=== PATIENT | male | born 1950 | race Caucasian/White ===

== ENCOUNTER 2017-10-28 17:46 | Inpatient (IN) | payer MEDICARE, OTHER ==
[2017-10-28] MEDS ORDERED: Levofloxacin 750mg/150mL 750 MG/150 ML BAG IV ONE (17:56)
[2017-10-28] MEDS ORDERED: Acetaminophen 500 MG TAB PO ONE (17:57)
[2017-10-28] MEDS ORDERED: Clindamycin 600mg/50mL 600 MG/50 ML BAG IV ONE (17:57)
[2017-10-28] MEDS ORDERED: Pantoprazole 40 mg EC Tab PO STA (17:59)
[2017-10-28 18:30] LABS: % BASOPHILS 0.6 % (0.0-2.0); % EOSINOPHILS 8.5 % (0.0-5.0); % LYMPHOCYTES 17.9 % (20.0-50.0); % MONOCYTES 11.1 % (2.0-10.0); % NEUTROPHILS 61.9 % (40.0-80.0); EOSINOPHILE ABSOLUTE 0.6 Th/cmm (0.1-0.4); HEMATOCRIT 37.6 % (41.0-60); HEMOGLOBIN 12.8 gm/dL (12-16); LYMPHOCYTE ABSOLUTE 1.3 Th/cmm (1.5-3.0); MEAN CELL VOLUME 90.7 fl (80-99); MEAN CORPUSCULAR HEMOGLOBIN 30.9 pg (27.0-31.0); MEAN CORPUSCULAR HGB CONC 34.1 pg (28.0-36.0); MEAN PLATELET VOLUME 8.1 fl; MONOCYTE ABSOLUTE 0.8 Th/cmm (0.3-1.0); NEUTROPHILE ABSOLUTE 4.3 Th/cmm (1.8-8.0); PLATELET COUNT 113 Th/cmm (150-400); RED BLOOD COUNT 4.14 Mil/cmm (3.80-5.80); RED CELL DISTRIBUTION WIDTH 13.2 % (11.5-20.0)
[2017-10-28 18:34] LABS: ALB/GLOB RATIO 1.4 (1.0-1.8); ALBUMIN 3.8 gm/dL (4.2-5.5); ALKALINE PHOSPHATASE 43 U/L (34-104); BILIRUBIN,TOTAL 0.5 mg/dL (0.3-1.0); BUN - UREA NITROGEN 24 mg/dL (7-25); CALCIUM SERUM 9.2 mg/dL (8.6-10.3); CARBON DIOXIDE 20.4 mEq/L (21.0-31.0); CHLORIDE 98 mEq/L (98-107); CHOLESTEROL 117 mg/dL (<200); CREATININE - SERUM 1.3 mg/dL (0.7-1.3); GFR AFRICAN-AMERICAN > 60.0 ml/min (>90); GFR NON AFRICAN-AMERICAN 58.9 ml/min; GLUCOSE 270 mg/dL (70-105); HDL -HIGH DENSITY LIPOPROTEIN 24 mg/dL (23-92); MAGNESIUM 2.1 mg/dL (1.9-2.7); POTASSIUM SERUM 4.4 mEq/L (3.5-5.1); SGOT 14 U/L (13-39); SGPT/ALT 18 U/L (7-52); SODIUM SERUM 127 mEq/L (136-145); TOTAL PROTEIN,SERUM 6.6 gm/dL (6.0-8.3); TRIGLYCERIDES 374 mg/dL (<150)
[2017-10-28] MEDS ORDERED: Acetaminophen 500 MG TAB ONE (19:32)
[2017-10-28] MEDS ORDERED: Pantoprazole 40 mg EC Tab PO ONE (19:32)
--- NOTE | 2017-10-28 20:43 | ER Physician Documentation ---
DATE OF SERVICE: 10/28/2017 EMERGENCY ROOM EVALUATION AND TREATMENT The patient is a full code. He was sent for psychiatric evaluation plus the patient was found to have a cellulitis in the left lower extremities almost 6 inches x 6 inch area and he was treated 1 week with antibiotic, I do not know which antibiotic was given, but the patient did not improve completely. The patient still has a considerable amount of cellulitis and the patient is sent here for psychiatric evaluation and we discovered that the patient also has evidence of cellulitis. The patient said that he was sent over here because of aggressive behavior, agitation, failure to thrive and he was sent here by [facility] [place]. The patient's medical doctor's name is Dr. Martinez and psychiatrist's name is Dr. Echevarria. The nurse who saw, approved was AUGUSTO Phillip, 10/27/2017, that means yesterday he must be approved to come today to see the patient. The patient was interviewed. The patient does not have any heart problems or any other medical problems. The patient is not . HISTORY OF PRESENT ILLNESS: The patient says that he does not have any problem or he does not want to kill anybody, he does not want himself to be killed. He has some anger in him that could be seen. The patient gave a history that he had a cellulitis in the left lower extremity, which was treated with 1 week of antibiotic and he requested that they can give him one more week of antibiotic, but he was denied and patient was sent over here. PAST MEDICAL HISTORY: History of congestive heart failure, history of atrial fibrillation, diabetes mellitus, hypertension, coronary artery disease, benign prostatic hypertrophy as well psychiatric condition. REVIEW OF SYSTEMS: A 12-point review of systems is essentially positive for cellulitis in the left lower extremity. Mild obesity. He has a history of surgery in the abdomen 23-25 years ago, plus he had some surgery in both eyes, the cataract removal and lens implantation was carried out, that was done more than 25 years ago. He is wearing glasses, mainly to see, otherwise, he is doing fine. PERSONAL HISTORY: Not . He has 3 daughters and one of them was in the army service etc. The patient's nutritional hydration status is essentially normal, alert, oriented x 3. The patient is free of communicable disease. ALLERGIES: None known. PRIMARY DIAGNOSES: The patient has a right lower extremity cellulitis is present. The patient was recently transferred from [place] for right lower extremity redness and swelling, workup for symptoms of cellulitis. Treatment is antibiotic and standing and other treatment. REVIEW OF SYSTEMS: EYES: No history of double vision, blurring, blindness. CENTRAL NERVOUS SYSTEM: Denied any TIAs, stroke, encephalitis, meningitis. No definite Down syndrome is identified. The patient has some psychiatric problem from maybe some psychosis anger problem and he has some complaints again, agitation problem and redness into the left lower extremity with psychiatric problems. The patient denied any myocardial infarction, rheumatic fever, valvular heart disease, pericardial disease, cardiomyopathy. Review of systems reveals that central nervous system, the patient has no TIA, no stroke, no history of any seizure disorder. ENDOCRINE: No history of diabetes mellitus, hypo or hyperthyroidism. Bones and joints, the patient says that he is getting OT, PT therapy. He was able to walk up to 1300 feet, but now because of cellulitis his walking has decreased. The patient has COPD for which he is taking DuoNebs. The patient had enlarged prostate for which he is taking Flomax. The patient has diabetes mellitus, taking 10 mg of glipizide, then he is taking Humalog solution insulin, that is lispro injection according to the scale that is been given plus he takes Lasix, Lipitor, lisinopril, loperamide as well as loratadine 10 mg tablet once a day, Mucinex tablet, nitroglycerin p.r.n. and patient is taking Plavix. I am not sure whether the patient has had any previous stent placement performed in him. The patient had this history of atrial fibrillation. His other past history includes a history of mood disorder due to known problem secondary ICD-10 code schizophrenic disorder, peripheral vascular disease, secondary disorder and obsessive compulsive disorder, schizophrenia, unspecified, heart failure and the patient was sent here for Geropsych. Depending upon his condition, he might need to be sent to the Geropsych admission, he can be given oral antibiotic tablet and other medications as needed can be given. In the meantime, the patient can be given the first dose starting dose with clindamycin and Levaquin has been added that can be started here and then the patient can be sent to the psychiatric evaluation. The patient has COPD and the patient is taking digoxin 125 mcg 1 tablet by mouth for AFib to control the ventricular response of atrial fibrillation, cholecalciferol tablet 2000 units once a day, clonidine tablet 0.1 mg 1 tablet by mouth daily and patient is getting solution Glargine 40 units once a day and the patient is also getting carvedilol 6.25 mg every every 12 hours but they have not given us the ejection fraction of this patient. We do not know if the patient had any myocardial infarction. We have no idea whether the patient's congestive heart failure is secondary to myocardial infarction, whether it is coronary artery disease or whether it is hypertension secondary to hypertensive heart disease, congestive heart failure is present and atrial fibrillation also could be as a result of this problem. HEART ROBLERO: The patient has all this problem that I mentioned earlier. Pulmonary roblero, patient has shortness of breath, PND, orthopnea, dyspnea on exertion. Ambulation is somewhat restricted. The patient takes nitroglycerin on a p.r.n. basis. The patient for the GERD, takes Protonix tablets. The patient has some mild GERD problem. The patient does not have any vomiting, GI problems, rectal bleeding or vomiting blood or any hematemesis or hematochezia. Endocrine roblero, the patient has no thyroid disease. No history of any diabetes mellitus. No history of any Hunters's syndrome. Genitourinary roblero, the patient has enlarged prostate for which he takes Flomax tablet. Denied any retention of urine. Denied any Carr catheter that was inserted in him. But it is very quite likely that because of enlarged prostate he might have had retention of the urine and he might have needed a Carr catheter maybe once or twice, but this needs to be known by the patient's family physician. The patient does not remember much of this history. The patient does take nitroglycerin on a p.r.n. basis 5.4 mg on a p.r.n. basis every 5 minutes x 3 for angina pectoris and Lipitor he takes 10 mg tablet, which is very little, lisinopril 10 mg tablet this is very little he takes once a day, Flomax tablet, he takes 10.4 mg once a day, glipizide 10 mg tablet, he takes once a day. and Humalog insulin solution according to the protocol. Gastrointestinal roblero, no history of any upper GI bleeding, lower GI bleeding. Genitourinary, enlarged prostate, no definite history of any distention of the kidney part or any polycystic kidneys. PHYSICAL EXAMINATION: GENERAL: The patient appears to be awake, alert, oriented, some part of the history is difficult to understand in view of the language barrier. Conjunctivae pink, sclerae white. HEENT: Normal. Jugular venous pressure is normal. The patient has cellulitis in the left lower extremity about 6 inches x 6 inches with redness, erythema and some purulent discharge type thing seen on that area and the area is red, hot, tender, painful. Pulses are not felt in the ankle area. There is edema over both lower extremities. CHEST: Reveals trachea to be central, fairly good air entry in both lungs without any rales, rhonchi, or bronchial wheezing. Neck veins are not distended and there is no gross evidence of any congestive heart failure. Chest has occasional crackles at the bases. ABDOMEN: Soft, obese, otherwise benign and negative. Has a midline surgical scar, deformed surgical scar, looks like a 2 or 3 different kinds of abdominal surgeries that were done on him and the scar is deformed suggesting multiple scarring and surgery has been done and according to him, the patient had anal bleeding, rectal bleeding and a part of the intestine was cut and removed and two suture has been placed and patient had a colostomy bag at that time. CVA, no tenderness, no guarding, no rigidity. HEART: PMI is not seen or felt. Heart sounds appeared to be looking tachycardic. EKG has been ordered and we will see what is the rate, if the rate is faster? When I first felt him the rate appeared to be close to 120-130. The patient will be connected to the monitor and will keep it so that we can watch him whether he goes in and out of atrial fibrillation and if it does that he might need some anticoagulant therapy, Plavix was given to the patient. I do not know whether it was as a result insertion of a stent in the coronary artery or whether it is because of coronary artery disease or whether the patient is allergic or sensitive to aspirin given her history of GI bleeding that is why instead of aspirin, Plavix has been given. All these are possibilities in this patient well known to the doctor. A 12-point review of systems has been found to be negative and benign and as I mentioned holds true. CLINICAL IMPRESSION: The patient has a psychiatric problem, schizophrenia, anger problem and patient has agitation problems. The patient was told to come here at 9:15 in the morning and the patient was brought here a little later on around in the day, around 4:00 and he was upset because of that. OTHER DIAGNOSES: Includes patient has left lower extremity cellulitis, but here they sent it as a right lower extremity cellulitis, but it is left lower extremity cellulitis. Other diagnoses that are written over there in their hospital and sent over here includes: 1. Congestive heart failure. 2. Atrial fibrillation. 3. Diabetes mellitus. 4. Hypertensive heart disease. 5. Coronary artery disease. 6. Diabetes. 7. Benign prostatic hypertrophy. 8. Psychiatric problem. 9. The patient has multiple surgeries in the abdomen. Rectal bleeding requiring surgery, part of the intestine was cut and thrown apart and then reanastomosed and patient had a colostomy and finally got improved. He had three surgeries of this nature, exact nature not known. Other surgeries include that the patient had an eye surgery with both eyes, corneal removal and lens implantation was done and he is wearing glasses to read. 10. The patient has cellulitis in the left lower extremity and the left lower extremity cellulitis, the patient has it and IV has been given and the patient would need a p.o. antibiotic down the line depending upon the patient's family doctor that is going to take care of the patient. If the patient in atrial fibrillation, then the patient would need continuation of the digoxin and patient has been getting Coreg, so I think they might continue Coreg, but I would like also Lopressor to be given, it depends upon the doctor's preference. 11. Mild obesity. 12. Three surgeries in the belly done. 13. All other diagnoses that I mentioned earlier holds true including schizophrenia, heart failure, atrial fibrillation, CAD, peripheral vascular disease, mild obesity, etc. Thank you again. All the labs, EKG, chest x-ray has been ordered and once we get some lab workup, we will decide what further to be done. We will discuss with the patient's primary MD and whether the patient should be sent to the psychiatric floor. I believe the patient could be sent on oral antibiotics and one antibiotic we will start and giving antibiotic IV here and then oral antibiotic down there in a Psychiatric Department. JOB# [id number]
[2017-10-28 23:17] VITALS: BP 00/00
[2017-10-28] MEDS ORDERED: Albuterol/Ipratropium Neb 3 ML AERS HHN PRN (23:29)
[2017-10-28] MEDS ORDERED: Guaifenesin DM 10 ML UDC PO PRN (23:29)
[2017-10-28] MEDS ORDERED: DULAGLUTIDE 0.75 MG SC SCH (23:30)
[2017-10-29] MEDS: Insulin Detemir 100 units/mL 10mL Vial SUBQ SCH ×2 (00:42→21:36)
--- NOTE | 2017-10-29 04:25 | ER Physician Documentation ---
DATE OF SERVICE: 10/28/2017 FINAL REPORT The patient is on the bed #4. The patient was sent here for psychiatric admission. The patient was seen and evaluated. The patient's first part was dictated. Now, we got the lab results showing white count to be 7000, hemoglobin 12.8, hematocrit 37.6, platelet count of 113,000, neutrophils 61.9, lymphocytes 17.9. Electrolytes showed sodium 127, potassium 4.4, chloride 98, CO2 20.4, BUN 24, creatinine is 1.3 and glucose is 270. The patient is a diabetic patient on insulin. Calcium 9.2, magnesium 2.1 and bilirubin 0.5. AST, ALT all essentially within normal limits. Triglycerides are high at 374. The patient may need a Tricor to be taken as an indoor patient. Cholesterol is 117, LDL is 50, HDL is 24. FINAL DIAGNOSES: I have already mentioned saying that the patient has cellulitis in the left lower extremity. The patient has congestive heart failure, coronary artery disease, chronic obstructive pulmonary disease, hypertension, diabetes mellitus, cataract surgery in both eyes with lens implantation, obesity and psychiatric problem. ASSESSMENT: The patient's physician will be called, Internal Medicine physician will be called and he will decide whether the patient to be admitted under the medical floor for a few days and then go to psych or whether the patient can go to Psych and take oral antibiotic in Psych. One can always take oral antibiotic in Psych and take psych medications also without any problems, so both ways one can do, so it all depends upon what the primary MD of this patient decides. Will ask the nurse to call, I will speak to the doctor and then will decide what further to be done. JOB# [id number]
[2017-10-29] MEDS: INSULIN ASPART SLIDING SCALE 100 UNITS/ML UNIT SUBQ SCH ×4 (06:43→21:34)
[2017-10-29] MEDS: Pantoprazole 40 mg EC Tab PO SCH (08:45)
--- NOTE | 2017-10-29 09:04 | Diagnostic Imaging Report ---
CHEST X-RAY: AP view INDICATION: Pneumonia COMPARISON: None FINDINGS: There is evidence of prior median sternotomy. Increased interstitial lung markings are noted with no focal consolidation or effusions. Mild cardiomegaly is noted. Degenerative changes of the spine are noted. IMPRESSION: Increased interstitial lung markings likely due to chronic changes. No focal consolidation identified. Mild cardiomegaly. Evidence of prior median sternotomy.
--- NOTE | 2017-10-29 10:41 | History and Physical ---
History of Present Illness - HPI Chief Complaint: Increased in agitation HPI: Patient was send to ER for evaluation on increased in agitation. During eval was found that patient has cellulites in left lower leg. 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[employer] INSTRUCTOR: Report: Dementia GI: Report: No Pertinent Hx Psych: Report: Psychosis, Schizophrenia Musculoskeletal: Report: No Pertinent Hx Rheumatologic: Report: No pertinent Hx Infectious Disease: Report: Other (Cellulites of left leg) Renal/: Report: No Pertinent Hx Endocrine: Report: Diabetes Dermatology: Report: Cellulitis - Past Surgical History Past Surgical History: No pertinent Hx Family Medical History - Family Member Mother History Unknown: Yes Ethnicity: Unknown Living Status: Unknown Social History Smoke: No Alcohol: None Drugs: None Lives: Care Home Domestic Violence: Negative - Medications Home Medications: Home Medication Medication Instructions Recorded Type Acetaminophen [Tylenol] 650 mg PO Q6HR PRN 10/28/17 History Albuterol/Ipratropium Neb [Duoneb 3 ml HHN Q6HR PRN 10/28/17 History Neb] Atorvastatin Calcium [Lipitor] 10 mg PO HS 10/28/17 History Carvedilol [Coreg] 6.25 mg PO Q12H 10/28/17 History Cholecalciferol (Vit D3) [Vitamin 2,000 iu PO DAILY 10/28/17 History D3] Clonidine HCl [Catapres] 0.1 mg PO Q6H PRN 10/28/17 History Clopidogrel [Plavix] 75 mg PO DAILY 10/28/17 History Dextromethorphan HBr [Daytime 5 mg PO Q6H PRN 10/28/17 History Cough] Digoxin [Lanoxin] 0.125 mg PO DAILY 10/28/[address] [Depakote DR] 500 mg PO BID 10/28/17 History Dulaglutide [Trulicity] 0.75 mg SC QWEEK 0730 10/28/17 History Furosemide [Lasix] 40 mg PO DAILY 10/28/17 History Glipizide [Glipizide ER] 10 mg PO BID 10/28/17 History Insulin Glargine, Recombinan 40 units SUBQ HS 10/28/17 History [Lantus] Insulin Lispro [Humalog] 0 unit SQ ACHS 10/28/17 History Lisinopril [Zestril] 10 mg PO DAILY 10/28/17 History Loperamide [Imodium] 2 mg PO Q4H PRN 10/28/17 History Montelukast Sodium 10 mg PO DAILY 10/28/17 History Nitroglycerin [Nitrostat] 0.4 mg SL Q5MIN PRN 10/28/17 History Pantoprazole [Protonix] 40 mg PO DAILY 10/28/17 History Silver Sulfadiazine 1% Cream [Ssd] 1 appl TP BID 10/28/17 History Spironolactone [Aldactone] 25 mg PO DAILY 10/28/17 History Tamsulosin [Flomax] 0.4 mg PO DAILY 10/28/17 History guaiFENesin [Mucinex] 600 mg PO Q12HR 10/28/17 History - Allergies Allergies/Adverse Reactions: Allergies Allergy/AdvReac Type Severity Reaction Status Date / Time No Known Allergies Allergy Verified 10/28/17 17:48 Review of Systems - Review of Systems Constitutional: Report: No Significant Eyes: Report: No Significant ENT: Report: No Significant Respiratory: Report: No Significant Cardiovascular: Report: No Significant Gastrointestinal: Report: No Significant Genitourinary: Report: No Significant Musculoskeletal: Report: Foot Pain Skin: Report: Other (Cellulites) Neurological: Report: Weakness Physical Exam - Physical Exam HEENT: Report: Ears Nose Throat within normal limits Neck: Report: Within normal limits Cardiovascular Systems: Report: Regular, Rate and Rhythm Respiratory: Report: Breath Sounds are within normal limits Abdomen: Report: Non-tender to palpation Back: Report: Inspection of back is within normal limits. Extremities: Report: Other (Left lower leg is red with edema below knee 2+) Skin: Report: Other (Rednes of left lower leg) Neuro/Psych: Report: Disoriented to name time or place - Assessment Assessment: Current Active Problems Problem Status Onset AGITATION WITH RIGHT LOWER EXTREMITY RED Acute Patient is awake, alert, confused, calm, not oriented. Dx: cellulites left leg, Increased in agitation, CHF, CAD, HTN, DM, COPD, Psychosis - Plan Plan: Patient is follow by Psychiatry, continue with SNF meds, AB po. Leg US requested. Will continue to monitor
--- NOTE | 2017-10-29 18:20 | Psychosocial Evaluation ---
DATE OF SERVICE: 10/29/2017 IDENTIFYING DATA: The patient is a 67-year-old male admitted from [facility]. Information obtained by directly interviewing the patient as well as reviewing the admission papers. JUSTIFICATION FOR HOSPITALIZATION: The patient is admitted here on a voluntary basis in view of his acute agitation. CHIEF COMPLAINT: "I shouldn't be in here, call the hospital to get me out of here." HISTORY OF PRESENT ILLNESS: This is the first psychiatric hospitalization for this patient, who is reported to have been out of control, screaming and yelling. The patient could not be contained at a lower level of care and hence has been transferred over here for stabilization. During the evaluation, the patient has been getting easily irritable, screaming and yelling and stating that the staff last night were not let him go to the toilet and he has to shit in his diaper and patient has been getting easily upset. The patient is demanding that I should contact his daughter and to get him out of here. PAST PSYCHIATRIC HISTORY: Details are not known. MEDICAL HISTORY: Requested to be done by Dr. Martinez. PHYSICAL EXAMINATION: Requested to be done by Dr. Martinez. SUBSTANCE ABUSE HISTORY: None. PHYSICAL OR SEXUAL ABUSE HISTORY: None. LEGAL PROBLEMS: None at this time. STRENGTH AND ASSETS: The patient is motivated. MENTAL STATUS EXAMINATION: The patient is a 67-year-old, looking his stated age, superficially cooperative. Eye contact is poor. Mood is noted to be irritable. Affect is constricted. Coping skills at this time are noted to be poor. Insight and judgment are also noted to be very poor. The patient has been having difficult time to cope with the stress. The patient has been screaming and yelling at this time. The patient appears to be paranoid, but denies any command hallucinations. The patient is alert and awake and he knows that he is in the hospital. DIAGNOSTIC IMPRESSION: 1. Bipolar disorder, mixed with psychotic symptoms. PLAN: To continue the patient with the supportive therapy, encouraged the patient to verbalize the concerns rather than to act out. The patient is currently on the valproic acid 500 mg twice a day and also getting the quetiapine 25 mg. We have given a dose to contain his agitation. The patient is going to be closely monitored with this and followed up. JOB# [id number]
[2017-10-29 19:11] LABS: A1C % 10.7 % (4.0-6.0)
[2017-10-29] MEDS ORDERED: Atorvastatin Calcium 10 MG TAB PO SCH (21:00)
[2017-10-29] MEDS: Atorvastatin Calcium 10 MG TAB PO SCH (21:33)
[2017-10-30] MEDS: INSULIN ASPART SLIDING SCALE 100 UNITS/ML UNIT SUBQ SCH ×4 (06:35→20:59)
[2017-10-30] MEDS: Pantoprazole 40 mg EC Tab PO SCH (08:53)
--- NOTE | 2017-10-30 09:09 | Diagnostic Imaging Report ---
Left lower extremity DVT study HISTORY: Pain, swelling, redness rule out DVT COMPARISON: None Technique: Longitudinal and transverse sonographic images of the left lower extremity veins were obtained with doppler analysis. FINDINGS: There is normal compressibility, augmentation and phasicity of the left common femoral, superficial femoral, popliteal, and posterior tibial veins. No thrombus is visualized. IMPRESSION: No evidence of thrombus within the left lower extremity veins.
[2017-10-30] MEDS: Atorvastatin Calcium 10 MG TAB PO SCH (20:52)
[2017-10-30] MEDS: Insulin Detemir 100 units/mL 10mL Vial SUBQ SCH (21:00)
--- NOTE | 2017-10-31 01:08 | Progress Notes ---
DATE: 10/30/2017 PSYCHIATRIC PROGRESS NOTE SUBJECTIVE: Staff was spoken to. The patient is interviewed. Mood is noted to be depressed. Affect is constricted. The patient's insight and judgment at this time are noted to be still impaired. Impulse control seems to be limited. The patient has been screaming and yelling and demanding that he should not be in here, he should be back at [facility]. The patient has no insight into his illness. ASSESSMENT: The patient is still impulsive and having mood swings. PLAN: To continue this patient with the current medications and followup. JOB# [id number]
[2017-10-31] MEDS: INSULIN ASPART SLIDING SCALE 100 UNITS/ML UNIT SUBQ SCH ×4 (06:40→21:14)
--- NOTE | 2017-10-31 08:47 | General Progress Note ---
Subjective - Review of Systems Service Date: 10/31/17 Subjective: I am fine Objective - Results Result Diagrams: 10/28/17 18:08 10/28/17 18:08 Recent Labs: Laboratory Last Values WBC 7.0 Th/cmm (4.8-10.8) 10/28/17 18:08 RBC 4.14 Mil/cmm (3.80-5.80) 10/28/17 18:08 Hgb 12.8 gm/dL (12-16) 10/28/17 18:08 Hct 37.6 % (41.0-60) L 10/28/17 18:08 MCV 90.7 fl (80-99) 10/28/17 18:08 MCH 30.9 pg (27.0-31.0) 10/28/17 18:08 MCHC Differential 34.1 pg (28.0-36.0) 10/28/17 18:08 RDW 13.2 % (11.5-20.0) 10/28/17 18:08 Plt Count 113 Th/cmm (150-400) L 10/28/17 18:08 MPV 8.1 fl 10/28/17 18:08 Neutrophils % 61.9 % (40.0-80.0) 10/28/17 18:08 Lymphocytes % 17.9 % (20.0-50.0) L 10/28/17 18:08 Monocytes % 11.1 % (2.0-10.0) H 10/28/17 18:08 Eosinophils % 8.5 % (0.0-5.0) H 10/28/17 18:08 Basophils % 0.6 % (0.0-2.0) 10/28/17 18:08 Sodium 127 mEq/L (136-145) L 10/28/17 18:08 Potassium 4.4 mEq/L (3.5-5.1) 10/28/17 18:08 Chloride 98 mEq/L (98-107) 10/28/17 18:08 Carbon Dioxide 20.4 mEq/L (21.0-31.0) L 10/28/17 18:08 Anion Gap 13.0 (7.0-16.0) 10/28/17 18:08 BUN 24 mg/dL (7-25) 10/28/17 18:08 Creatinine 1.3 mg/dL (0.7-1.3) 10/28/17 18:08 Est GFR ( Amer) > 60.0 ml/min (>90) 10/28/17 18:08 Est GFR (Non-Af Amer) 58.9 ml/min 10/28/17 18:08 BUN/Creatinine Ratio 18.5 10/28/17 18:08 Glucose 270 mg/dL (70-105) H 10/28/17 18:08 POC Glucose 215 MG/DL (70 - 105) H 10/31/17 06:25 Hemoglobin A1c % 10.7 % (4.0-6.0) H 10/28/17 18:08 Calcium 9.2 mg/dL (8.6-10.3) 10/28/17 18:08 Magnesium 2.1 mg/dL (1.9-2.7) 10/28/17 18:08 Total Bilirubin 0.5 mg/dL (0.3-1.0) 10/28/17 18:08 AST 14 U/L (13-39) 10/28/17 18:08 ALT 18 U/L (7-52) 10/28/17 18:08 Alkaline Phosphatase 43 U/L (34-104) 10/28/17 18:08 Total Protein 6.6 gm/dL (6.0-8.3) 10/28/17 18:08 Albumin 3.8 gm/dL (4.2-5.5) L 10/28/17 18:08 Globulin 2.8 gm/dL 10/28/17 18:08 Albumin/Globulin Ratio 1.4 (1.0-1.8) 10/28/17 18:08 Triglycerides 374 mg/dL (<150) H 10/28/17 18:08 Cholesterol 117 mg/dL (<200) 10/28/17 18:08 LDL Cholesterol Direct 50 mg/dL (75-193) L 10/28/17 18:08 HDL Cholesterol 24 mg/dL (23-92) 10/28/17 18:08 - Physical Exam Vitals and I&O: Vital Signs Temp 97.3 F 10/31/17 06:43 Pulse 68 10/31/17 07:28 Resp 20 10/31/17 07:28 BP 158/85 10/31/17 06:43 Pulse Ox 97 10/31/17 07:28 Intake & Output 10/30/17 10/31/17 10/31/17 18:59 06:59 18:59 Other: Stool Characteristics Soft Active Medications: Current Medications Acetaminophen (Tylenol) 650 mg PO Q6HR PRN PRN Reason: PAIN Stop: 12/27/17 23:28 Last Admin: 10/29/17 17:10 Dose: 650 mg Albuterol/Ipratropium (Duoneb Neb) 3 ml HHN Q6HRT PRN PRN Reason: SOB/WHEEZING Stop: 12/27/17 23:28 Atorvastatin Calcium (Lipitor) 20 mg PO HS [facility] PRN Reason: Protocol Stop: 12/28/17 20:59 Last Admin: 10/30/17 20:52 Dose: 20 mg Carvedilol (Coreg) 6.25 mg PO Q12H [facility] Stop: 12/27/17 23:29 Last Admin: 10/30/17 23:45 Dose: 6.25 mg Cholecalciferol (Vitamin D3) 2,000 iu PO DAILY [facility] Stop: 12/28/17 08:59 Last Admin: 10/30/17 08:54 Dose: 2,000 iu Clindamycin HCl (Cleocin Hcl) 300 mg PO Q8HR [facility] Stop: 12/28/17 12:59 Last Admin: 10/31/17 05:25 Dose: 300 mg Clopidogrel Bisulfate (Plavix) 75 mg PO DAILY [facility] Stop: 12/28/17 08:59 Last Admin: 10/30/17 08:53 Dose: 75 mg Digoxin (Lanoxin) 0.125 mg PO DAILY [facility] Stop: 12/28/17 08:59 Last Admin: 10/30/17 08:54 Dose: 0.125 mg Divalproex Sodium (Depakote Dr) 500 mg PO BID [facility] PRN Reason: Protocol Stop: 12/28/17 08:59 Last Admin: 10/30/17 16:35 Dose: 500 mg Furosemide (Lasix) 40 mg PO DAILY [facility] Stop: 12/28/17 08:59 Last Admin: 10/30/17 08:53 Dose: 40 mg Glipizide (Glucotrol) 10 mg PO BID [facility] Stop: 12/30/17 08:59 Guaifenesin (Mucinex) 600 mg PO Q12HR [facility] Stop: 12/28/17 08:59 Last Admin: 10/30/17 20:52 Dose: 600 mg Guaifenesin/Dextromethorphan (Robitussin Dm) 10 ml PO Q6H PRN PRN Reason: Cough Insulin Aspart (Novolog Insulin Sliding Scale) 0 units SUBQ ACHS [facility] PRN Reason: Protocol Stop: 12/28/17 07:29 Last Admin: 10/31/17 06:40 Dose: 4 units Insulin Detemir (Levemir Insulin) 40 units SUBQ HS [facility] Stop: 12/27/17 23:44 Last Admin: 10/30/17 21:00 Dose: 40 units Lisinopril (Zestril) 10 mg PO DAILY [facility] Stop: 12/28/17 08:59 Last Admin: 10/30/17 08:53 Dose: 10 mg Loperamide HCl (Imodium) 2 mg PO Q4H PRN PRN Reason: Loose Stools Stop: 12/27/17 23:28 Lorazepam (Ativan) 0.5 mg PO Q4HR PRN; Protocol PRN Reason: Agitation Stop: 11/28/17 00:42 Last Admin: 10/29/17 17:10 Dose: 0.5 mg Miscellaneous (Dulaglutide [Trulicity]) 0.75 mg SC QWEEK 0730 [facility] Stop: 12/27/17 23:29 Montelukast Sodium (Singulair) 10 mg PO DAILY [facility] Stop: 12/28/17 08:59 Last Admin: 10/30/17 08:53 Dose: 10 mg Nitroglycerin (Nitrostat) 0.4 mg SL Q5MIN PRN PRN Reason: Chest Pain Stop: 12/27/17 23:28 Pantoprazole Sodium (Protonix) 40 mg PO DAILY [facility] Stop: 12/28/17 08:59 Last Admin: 10/30/17 08:53 Dose: 40 mg Sodium Chloride (Nacl Tab) 1 gm PO BID [facility] Stop: 12/28/17 10:29 Last Admin: 10/30/17 16:35 Dose: 1 gm Spironolactone (Aldactone) 25 mg PO DAILY [facility] Stop: 12/28/17 08:59 Last Admin: 10/30/17 08:53 Dose: 25 mg Tamsulosin HCl (Flomax) 0.4 mg PO DAILY [facility] Stop: 12/28/17 08:59 Last Admin: 10/30/17 09:59 Dose: 0.4 mg Zolpidem Tartrate (Ambien) 5 mg PO HS PRN PRN Reason: Insomnia Stop: 12/28/17 00:46 General: Alert, No acute distress HEENT: Atraumatic Neck: Supple Cardiovascular: Regular rate Lungs: Clear to auscultation Abdomen: Bowel sounds, Soft Extremities: Other (No edema) Neurological: Other (Unstable gait) Skin: Other (Warm and dry) Psych/Mental Status: Other (Confused, not oriented) Assessment/Plan - Problem List Patient Problems: All Active Problems AGITATION WITH RIGHT LOWER EXTREMITY RED (Acute) - Assessment Assessment: Current Active Problems Problem Status Onset AGITATION WITH RIGHT LOWER EXTREMITY RED Acute Patient is awake, alert, confused, calm, not oriented. Dx: cellulites left leg, Increased in agitation, CHF, CAD, HTN, DM, COPD, Psychosis - Plan Plan: Patient is follow by Psychiatry, continue with SNF meds, AB po. Leg US requested. Will continue to monitor Nutritional Asmnt/Malnutr-PDOC - Dietary Evaluation Malnutrition Findings (Please click <Entered> for more info): Nutritional Asmnt/Malnutrition Start: 10/29/17 11: 50 Text: Status: Complete Freq: Document 10/29/17 11:50 ZEINA (Rec: 10/29/17 12:11 MMULTATIANNA MURRIETA- [email or web address]) Nutritional Asmnt/Malnutrition Patient General Information Nutritional Screening High Risk Diagnosis Psychosis NOS (reason for visit) Pertinent Medical Hx/Surgical Hx CAD, CHF, HTN, hyperlipidemia, COPD, dementia, psychosis, schizophrenia, diabetes, cellulitis Subjective Information patient in bed at time of visit. Tolerating current diet order without difficulty. Current Diet Order/ Nutrition Support Cardiac, 2gm sodium Pertinent Medications lipitor, vitamin D3, lasix, novolog, levemir, imodium, protonix Pertinent Labs (10/28) Na 127, glucose 270, albumin 3.8, TAG 374 Nutritional Hx/Data Height 1.83 m Height (Calculated Centimeters) 182.9 Current Weight (lbs) 104.326 kg Weight (Calculated Kilograms) 104.3 Weight (Calculated Grams) 884375.2 [place] Body Weight 178 % [place] Body Weight 129 Body Mass Index (BMI) 31.1 Recent Weight Change No Weight Status Obese GI Symptoms GI Symptoms None Last BM 10/29 x 1 Difficult in: None Food Allergies No Cultural/Ethnic/Evangelical Belief None indciated Skin Integrity/Comment: Per nursing notes, left lower leg with swelilng Estimated Nutritional Goals BEE in Kcals: Adj wt of IBW Calories/Kcals/Kg 86.8kg Adj wt (25-30 kcal/kg) Kcals Calculated 4315-3533 kcal/day Protein: Adj wt of IBW Protein g/k-1.2 gm/kg Protein Calculated 85-105 gm/day Fluid: ml 2622-3563 ml/day (1 ml/kcal) Nutritional Problem 1. Problem Problem Altered nutrition related lab values related to Etiology electrolyte imbalance and hyperglycemia aeb Signs/Symptoms: Na 127, glucose 270 Intervention/Recommendation Comments 1. Continue cardiac diet as tolerated by patient. 2. Consider adding 75gm CCHO diet restrictio to diet order; MD to also adjust insulin regimen for optimal glycemic control. 3. MD to consider fluid restriction due to hyponatremia. Expected Outcomes/Goals Expected Outcomes/Goals oral intake to meet <75% of nutrient needs, weight stable or trend toward ideal body weight, nutrition related labs normalize F/U in 3-5 days as MR 11/01-
[2017-10-31] MEDS: Pantoprazole 40 mg EC Tab PO SCH (09:12)
[2017-10-31] MEDS: Atorvastatin Calcium 10 MG TAB PO SCH (21:11)
[2017-10-31] MEDS: Insulin Detemir 100 units/mL 10mL Vial SUBQ SCH (21:14)
[2017-11-01] MEDS: INSULIN ASPART SLIDING SCALE 100 UNITS/ML UNIT SUBQ SCH ×4 (06:37→21:00)
[2017-11-01] MEDS: Pantoprazole 40 mg EC Tab PO SCH (09:01)
--- NOTE | 2017-11-01 09:16 | General Progress Note ---
Subjective - Review of Systems Service Date: 11/01/17 Subjective: I am fine Objective - Results Result Diagrams: 10/28/17 18:08 10/28/17 18:08 Recent Labs: Laboratory Last Values WBC 7.0 Th/cmm (4.8-10.8) 10/28/17 18:08 RBC 4.14 Mil/cmm (3.80-5.80) 10/28/17 18:08 Hgb 12.8 gm/dL (12-16) 10/28/17 18:08 Hct 37.6 % (41.0-60) L 10/28/17 18:08 MCV 90.7 fl (80-99) 10/28/17 18:08 MCH 30.9 pg (27.0-31.0) 10/28/17 18:08 MCHC Differential 34.1 pg (28.0-36.0) 10/28/17 18:08 RDW 13.2 % (11.5-20.0) 10/28/17 18:08 Plt Count 113 Th/cmm (150-400) L 10/28/17 18:08 MPV 8.1 fl 10/28/17 18:08 Neutrophils % 61.9 % (40.0-80.0) 10/28/17 18:08 Lymphocytes % 17.9 % (20.0-50.0) L 10/28/17 18:08 Monocytes % 11.1 % (2.0-10.0) H 10/28/17 18:08 Eosinophils % 8.5 % (0.0-5.0) H 10/28/17 18:08 Basophils % 0.6 % (0.0-2.0) 10/28/17 18:08 Sodium 127 mEq/L (136-145) L 10/28/17 18:08 Potassium 4.4 mEq/L (3.5-5.1) 10/28/17 18:08 Chloride 98 mEq/L (98-107) 10/28/17 18:08 Carbon Dioxide 20.4 mEq/L (21.0-31.0) L 10/28/17 18:08 Anion Gap 13.0 (7.0-16.0) 10/28/17 18:08 BUN 24 mg/dL (7-25) 10/28/17 18:08 Creatinine 1.3 mg/dL (0.7-1.3) 10/28/17 18:08 Est GFR ( Amer) > 60.0 ml/min (>90) 10/28/17 18:08 Est GFR (Non-Af Amer) 58.9 ml/min 10/28/17 18:08 BUN/Creatinine Ratio 18.5 10/28/17 18:08 Glucose 270 mg/dL (70-105) H 10/28/17 18:08 POC Glucose 215 MG/DL (70 - 105) H 10/31/17 06:25 Hemoglobin A1c % 10.7 % (4.0-6.0) H 10/28/17 18:08 Calcium 9.2 mg/dL (8.6-10.3) 10/28/17 18:08 Magnesium 2.1 mg/dL (1.9-2.7) 10/28/17 18:08 Total Bilirubin 0.5 mg/dL (0.3-1.0) 10/28/17 18:08 AST 14 U/L (13-39) 10/28/17 18:08 ALT 18 U/L (7-52) 10/28/17 18:08 Alkaline Phosphatase 43 U/L (34-104) 10/28/17 18:08 Total Protein 6.6 gm/dL (6.0-8.3) 10/28/17 18:08 Albumin 3.8 gm/dL (4.2-5.5) L 10/28/17 18:08 Globulin 2.8 gm/dL 10/28/17 18:08 Albumin/Globulin Ratio 1.4 (1.0-1.8) 10/28/17 18:08 Triglycerides 374 mg/dL (<150) H 10/28/17 18:08 Cholesterol 117 mg/dL (<200) 10/28/17 18:08 LDL Cholesterol Direct 50 mg/dL (75-193) L 10/28/17 18:08 HDL Cholesterol 24 mg/dL (23-92) 10/28/17 18:08 - Physical Exam Vitals and I&O: Vital Signs Temp 96.7 F 11/01/17 05:29 Pulse 62 11/01/17 09:01 Resp 20 11/01/17 06:52 BP 157/77 11/01/17 09:01 Pulse Ox 98 11/01/17 06:52 Intake & Output 10/31/17 11/01/17 11/01/17 18:59 06:59 18:59 Intake Total 240 Output Total 600 Balance -360 Intake: Oral 240 Output: Urine 600 Stool 0 Other: Stool Characteristics Soft Active Medications: Current Medications Acetaminophen (Tylenol) 650 mg PO Q6HR PRN PRN Reason: PAIN Stop: 12/27/17 23:28 Last Admin: 11/01/17 09:00 Dose: 650 mg Albuterol/Ipratropium (Duoneb Neb) 3 ml HHN Q6HRT PRN PRN Reason: SOB/WHEEZING Stop: 12/27/17 23:28 Atorvastatin Calcium (Lipitor) 20 mg PO HS [facility] PRN Reason: Protocol Stop: 12/28/17 20:59 Last Admin: 10/31/17 21:11 Dose: 20 mg Carvedilol (Coreg) 6.25 mg PO Q12H [facility] Stop: 12/27/17 23:29 Last Admin: 10/31/17 23:50 Dose: Not Given Cholecalciferol (Vitamin D3) 2,000 iu PO DAILY [facility] Stop: 12/28/17 08:59 Last Admin: 11/01/17 09:02 Dose: 2,000 iu Clindamycin HCl (Cleocin Hcl) 300 mg PO Q8HR [facility] Stop: 12/28/17 12:59 Last Admin: 11/01/17 05:07 Dose: 300 mg Clopidogrel Bisulfate (Plavix) 75 mg PO DAILY [facility] Stop: 12/28/17 08:59 Last Admin: 11/01/17 09:00 Dose: 75 mg Digoxin (Lanoxin) 0.125 mg PO DAILY [facility] Stop: 12/28/17 08:59 Last Admin: 11/01/17 09:01 Dose: 0.125 mg Divalproex Sodium (Depakote Dr) 500 mg PO BID [facility] PRN Reason: Protocol Stop: 12/28/17 08:59 Last Admin: 11/01/17 09:00 Dose: 500 mg Furosemide (Lasix) 40 mg PO DAILY [facility] Stop: 12/28/17 08:59 Last Admin: 11/01/17 09:01 Dose: 40 mg Glipizide (Glucotrol) 10 mg PO BID [facility] Stop: 06/22/18 08:59 Last Admin: 11/01/17 09:00 Dose: 10 mg Guaifenesin (Mucinex) 600 mg PO Q12HR [facility] Stop: 12/28/17 08:59 Last Admin: 11/01/17 09:02 Dose: 600 mg Guaifenesin/Dextromethorphan (Robitussin Dm) 10 ml PO Q6H PRN PRN Reason: Cough Insulin Aspart (Novolog Insulin Sliding Scale) 0 units SUBQ ACHS [facility] PRN Reason: Protocol Stop: 12/28/17 07:29 Last Admin: 11/01/17 06:37 Dose: 4 units Insulin Detemir (Levemir Insulin) 40 units SUBQ HS [facility] Stop: 12/27/17 23:44 Last Admin: 10/31/17 21:14 Dose: 40 units Lisinopril (Zestril) 10 mg PO DAILY [facility] Stop: 12/28/17 08:59 Last Admin: 11/01/17 09:01 Dose: 10 mg Loperamide HCl (Imodium) 2 mg PO Q4H PRN PRN Reason: Loose Stools Stop: 12/27/17 23:28 Lorazepam (Ativan) 0.5 mg PO Q4HR PRN; Protocol PRN Reason: Agitation Stop: 11/28/17 00:42 Last Admin: 10/29/17 17:10 Dose: 0.5 mg Miscellaneous (Dulaglutide [Trulicity]) 0.75 mg SC QWEEK 0730 [facility] Stop: 12/27/17 23:29 Montelukast Sodium (Singulair) 10 mg PO DAILY [facility] Stop: 12/28/17 08:59 Last Admin: 11/01/17 09:02 Dose: 10 mg Nitroglycerin (Nitrostat) 0.4 mg SL Q5MIN PRN PRN Reason: Chest Pain Stop: 12/27/17 23:28 Pantoprazole Sodium (Protonix) 40 mg PO DAILY [facility] Stop: 12/28/17 08:59 Last Admin: 11/01/17 09:01 Dose: 40 mg Quetiapine Fumarate (Seroquel) 12.5 mg PO HS [facility] PRN Reason: Protocol Stop: 12/30/17 20:59 Last Admin: 10/31/17 21:11 Dose: 12.5 mg Sodium Chloride (Nacl Tab) 1 gm PO BID [facility] Stop: 12/28/17 10:29 Last Admin: 11/01/17 09:01 Dose: 1 gm Spironolactone (Aldactone) 25 mg PO DAILY [facility] Stop: 12/28/17 08:59 Last Admin: 11/01/17 09:00 Dose: 25 mg Tamsulosin HCl (Flomax) 0.4 mg PO DAILY [facility] Stop: 12/28/17 08:59 Last Admin: 11/01/17 09:02 Dose: 0.4 mg Zolpidem Tartrate (Ambien) 5 mg PO HS PRN PRN Reason: Insomnia Stop: 12/28/17 00:46 General: Alert, No acute distress HEENT: Atraumatic Neck: Supple Cardiovascular: Regular rate Lungs: Clear to auscultation Abdomen: Bowel sounds, Soft Extremities: Other (No edema) Neurological: Other (Unstable gait) Skin: Other (Warm and dry) Psych/Mental Status: Other (Confused, not oriented) Assessment/Plan - Problem List Patient Problems: All Active Problems AGITATION WITH RIGHT LOWER EXTREMITY RED (Acute) - Assessment Assessment: Current Active Problems Problem Status Onset AGITATION WITH RIGHT LOWER EXTREMITY RED Acute Patient is awake, alert, confused, calm, not oriented. Dx: cellulites left leg, Increased in agitation, CHF, CAD, HTN, DM, COPD, Psychosis - Plan Plan: Patient is follow by Psychiatry, continue with SNF meds, AB po. Leg US requested. Will continue to monitor Nutritional Asmnt/Malnutr-PDOC - Dietary Evaluation Malnutrition Findings (Please click <Entered> for more info): Nutritional Asmnt/Malnutrition Start: 10/29/17 11: 50 Text: Status: Complete Freq: Document 10/29/17 11:50 MMULTATIANNA (Rec: 10/29/17 12:11 [facility] Nutritional Asmnt/Malnutrition Patient General Information Nutritional Screening High Risk Diagnosis Psychosis NOS (reason for visit) Pertinent Medical Hx/Surgical Hx CAD, CHF, HTN, hyperlipidemia, COPD, dementia, psychosis, schizophrenia, diabetes, cellulitis Subjective Information patient in bed at time of visit. Tolerating current diet order without difficulty. Current Diet Order/ Nutrition Support Cardiac, 2gm sodium Pertinent Medications lipitor, vitamin D3, lasix, novolog, levemir, imodium, protonix Pertinent Labs (10/28) Na 127, glucose 270, albumin 3.8, TAG 374 Nutritional Hx/Data Height 1.83 m Height (Calculated Centimeters) 182.9 Current Weight (lbs) 104.326 kg Weight (Calculated Kilograms) 104.3 Weight (Calculated Grams) 043461.2 [place] Body Weight 178 % [place] Body Weight 129 Body Mass Index (BMI) 31.1 Recent Weight Change No Weight Status Obese GI Symptoms GI Symptoms None Last BM 10/29 x 1 Difficult in: None Food Allergies No Cultural/Ethnic/Christianity Belief None indciated Skin Integrity/Comment: Per nursing notes, left lower leg with swelilng Estimated Nutritional Goals BEE in Kcals: Adj wt of IBW Calories/Kcals/Kg 86.8kg Adj wt (25-30 kcal/kg) Kcals Calculated 0402-7306 kcal/day Protein: Adj wt of IBW Protein g/k-1.2 gm/kg Protein Calculated 85-105 gm/day Fluid: ml 1495-5404 ml/day (1 ml/kcal) Nutritional Problem 1. Problem Problem Altered nutrition related lab values related to Etiology electrolyte imbalance and hyperglycemia aeb Signs/Symptoms: Na 127, glucose 270 Intervention/Recommendation Comments 1. Continue cardiac diet as tolerated by patient. 2. Consider adding 75gm CCHO diet restrictio to diet order; MD to also adjust insulin regimen for optimal glycemic control. 3. MD to consider fluid restriction due to hyponatremia. Expected Outcomes/Goals Expected Outcomes/Goals oral intake to meet <75% of nutrient needs, weight stable or trend toward ideal body weight, nutrition related labs normalize F/U in 3-5 days as MR 11/01-
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
--- NOTE | 2017-11-01 14:58 | Progress Notes ---
DATE: 10/31/2017 Staff was spoken to. The patient is interviewed. Mood is noted to be irritable. Affect is constricted. Continues to have paranoia, screaming, and yelling, but the patient's family came by to visit last night and the patient has been able to participate in groups and verbalize the concerns today. No side effects to the medications are noted except being paranoid. The patient is going to be placed on 12.5 mg of the Seroquel at night time and the patient is going to be closely monitored. JOB# [id number]
[2017-11-01] MEDS: Atorvastatin Calcium 10 MG TAB PO SCH (20:59)
[2017-11-01] MEDS: Insulin Detemir 100 units/mL 10mL Vial SUBQ SCH (21:00)
--- NOTE | 2017-11-02 05:34 | Progress Notes ---
DATE: 11/01/2017 PSYCHIATRIC PROGRESS NOTE Staff was spoken to. The patient is interviewed. Mood is noted to be irritable. Affect is constricted. Coping skills are noted to be still poor. The patient is screaming and yelling. The patient is stating that there is no reason for him to be in here, I need to contact his daughter, who is the durable power of protective signal operations supervisor for him to be out. The patient has been placed on a low dose of the medications such as the ____ 500 mg twice a day and the patient also has been placed on Seroquel 12.5 mg and is going to be increased to 25 mg at bedtime. The patient is going to be followed up with the supportive therapy. The patient is not ready to be discharged to lower level of care in view of his agitated behavior. JOB# [id number]
[2017-11-02] MEDS: INSULIN ASPART SLIDING SCALE 100 UNITS/ML UNIT SUBQ SCH ×4 (06:41→21:25)
--- NOTE | 2017-11-02 09:06 | General Progress Note ---
Subjective - Review of Systems Service Date: 11/02/17 Subjective: I am fine Objective - Results Result Diagrams: 10/28/17 18:08 10/28/17 18:08 Recent Labs: Laboratory Last Values WBC 7.0 Th/cmm (4.8-10.8) 10/28/17 18:08 RBC 4.14 Mil/cmm (3.80-5.80) 10/28/17 18:08 Hgb 12.8 gm/dL (12-16) 10/28/17 18:08 Hct 37.6 % (41.0-60) L 10/28/17 18:08 MCV 90.7 fl (80-99) 10/28/17 18:08 MCH 30.9 pg (27.0-31.0) 10/28/17 18:08 MCHC Differential 34.1 pg (28.0-36.0) 10/28/17 18:08 RDW 13.2 % (11.5-20.0) 10/28/17 18:08 Plt Count 113 Th/cmm (150-400) L 10/28/17 18:08 MPV 8.1 fl 10/28/17 18:08 Neutrophils % 61.9 % (40.0-80.0) 10/28/17 18:08 Lymphocytes % 17.9 % (20.0-50.0) L 10/28/17 18:08 Monocytes % 11.1 % (2.0-10.0) H 10/28/17 18:08 Eosinophils % 8.5 % (0.0-5.0) H 10/28/17 18:08 Basophils % 0.6 % (0.0-2.0) 10/28/17 18:08 Sodium 127 mEq/L (136-145) L 10/28/17 18:08 Potassium 4.4 mEq/L (3.5-5.1) 10/28/17 18:08 Chloride 98 mEq/L (98-107) 10/28/17 18:08 Carbon Dioxide 20.4 mEq/L (21.0-31.0) L 10/28/17 18:08 Anion Gap 13.0 (7.0-16.0) 10/28/17 18:08 BUN 24 mg/dL (7-25) 10/28/17 18:08 Creatinine 1.3 mg/dL (0.7-1.3) 10/28/17 18:08 Est GFR ( Amer) > 60.0 ml/min (>90) 10/28/17 18:08 Est GFR (Non-Af Amer) 58.9 ml/min 10/28/17 18:08 BUN/Creatinine Ratio 18.5 10/28/17 18:08 Glucose 270 mg/dL (70-105) H 10/28/17 18:08 POC Glucose 215 MG/DL (70 - 105) H 10/31/17 06:25 Hemoglobin A1c % 10.7 % (4.0-6.0) H 10/28/17 18:08 Calcium 9.2 mg/dL (8.6-10.3) 10/28/17 18:08 Magnesium 2.1 mg/dL (1.9-2.7) 10/28/17 18:08 Total Bilirubin 0.5 mg/dL (0.3-1.0) 10/28/17 18:08 AST 14 U/L (13-39) 10/28/17 18:08 ALT 18 U/L (7-52) 10/28/17 18:08 Alkaline Phosphatase 43 U/L (34-104) 10/28/17 18:08 Total Protein 6.6 gm/dL (6.0-8.3) 10/28/17 18:08 Albumin 3.8 gm/dL (4.2-5.5) L 10/28/17 18:08 Globulin 2.8 gm/dL 10/28/17 18:08 Albumin/Globulin Ratio 1.4 (1.0-1.8) 10/28/17 18:08 Triglycerides 374 mg/dL (<150) H 10/28/17 18:08 Cholesterol 117 mg/dL (<200) 10/28/17 18:08 LDL Cholesterol Direct 50 mg/dL (75-193) L 10/28/17 18:08 HDL Cholesterol 24 mg/dL (23-92) 10/28/17 18:08 - Physical Exam Vitals and I&O: Vital Signs Temp 97 F 11/02/17 06:18 Pulse 60 11/02/17 08:00 Resp 18 11/02/17 08:00 BP 150/77 11/02/17 06:18 Pulse Ox 97 04/25/18 06:18 Intake & Output 11/01/17 11/02/17 11/02/17 18:59 06:59 18:59 Intake Total 1100 Balance 1100 Intake: Oral 1100 Other: # Voids 3 # Bowel Movements 0 Active Medications: Current Medications Acetaminophen (Tylenol) 650 mg PO Q6HR PRN PRN Reason: PAIN Stop: 12/27/17 23:28 Last Admin: 11/01/17 20:59 Dose: 650 mg Albuterol/Ipratropium (Duoneb Neb) 3 ml HHN Q6HRT PRN PRN Reason: SOB/WHEEZING Stop: 12/27/17 23:28 Atorvastatin Calcium (Lipitor) 20 mg PO HS [facility] PRN Reason: Protocol Stop: 12/28/17 20:59 Last Admin: 11/01/17 20:59 Dose: 20 mg Carvedilol (Coreg) 6.25 mg PO Q12H [facility] Stop: 12/27/17 23:29 Last Admin: 11/01/17 23:51 Dose: 6.25 mg Cholecalciferol (Vitamin D3) 2,000 iu PO DAILY [facility] Stop: 12/28/17 08:59 Last Admin: 11/01/17 09:02 Dose: 2,000 iu Clindamycin HCl (Cleocin Hcl) 300 mg PO Q8HR [facility] Stop: 12/28/17 12:59 Last Admin: 11/02/17 05:23 Dose: 300 mg Clopidogrel Bisulfate (Plavix) 75 mg PO DAILY [facility] Stop: 12/28/17 08:59 Last Admin: 11/01/17 09:00 Dose: 75 mg Digoxin (Lanoxin) 0.125 mg PO DAILY [facility] Stop: 12/28/17 08:59 Last Admin: 11/01/17 09:01 Dose: 0.125 mg Divalproex Sodium (Depakote Dr) 500 mg PO BID [facility] PRN Reason: Protocol Stop: 12/28/17 08:59 Last Admin: 11/01/17 17:31 Dose: 500 mg Furosemide (Lasix) 40 mg PO DAILY [facility] Stop: 12/28/17 08:59 Last Admin: 11/01/17 09:01 Dose: 40 mg Glipizide (Glucotrol) 10 mg PO BID [facility] Stop: 12/30/17 08:59 Last Admin: 11/01/17 17:31 Dose: 10 mg Guaifenesin (Mucinex) 600 mg PO Q12HR [facility] Stop: 12/28/17 08:59 Last Admin: 11/01/17 20:58 Dose: 600 mg Guaifenesin/Dextromethorphan (Robitussin Dm) 10 ml PO Q6H PRN PRN Reason: Cough Insulin Aspart (Novolog Insulin Sliding Scale) 0 units SUBQ ACHS [facility] PRN Reason: Protocol Stop: 12/28/17 07:29 Last Admin: 11/02/17 06:41 Dose: 2 units Insulin Detemir (Levemir Insulin) 40 units SUBQ HS [facility] Stop: 12/27/17 23:44 Last Admin: 11/01/17 21:00 Dose: 40 units Lisinopril (Zestril) 10 mg PO DAILY [facility] Stop: 12/28/17 08:59 Last Admin: 11/01/17 09:01 Dose: 10 mg Loperamide HCl (Imodium) 2 mg PO Q4H PRN PRN Reason: Loose Stools Stop: 12/27/17 23:28 Lorazepam (Ativan) 0.5 mg PO Q4HR PRN; Protocol PRN Reason: Agitation Stop: 11/28/17 00:42 Last Admin: 10/29/17 17:10 Dose: 0.5 mg Miscellaneous (Dulaglutide [Trulicity]) 0.75 mg SC QWEEK 0730 [facility] Stop: 12/27/17 23:29 Montelukast Sodium (Singulair) 10 mg PO DAILY [facility] Stop: 12/28/17 08:59 Last Admin: 11/01/17 09:02 Dose: 10 mg Nitroglycerin (Nitrostat) 0.4 mg SL Q5MIN PRN PRN Reason: Chest Pain Stop: 12/27/17 23:28 Pantoprazole Sodium (Protonix) 40 mg PO DAILY [facility] Stop: 12/28/17 08:59 Last Admin: 11/01/17 09:01 Dose: 40 mg Quetiapine Fumarate (Seroquel) 25 mg PO HS [facility] PRN Reason: Protocol Stop: 12/31/17 19:26 Last Admin: 11/01/17 20:58 Dose: 25 mg Sodium Chloride (Nacl Tab) 1 gm PO BID [facility] Stop: 12/28/17 10:29 Last Admin: 11/01/17 17:31 Dose: 1 gm Spironolactone (Aldactone) 25 mg PO DAILY [facility] Stop: 12/28/17 08:59 Last Admin: 11/01/17 09:00 Dose: 25 mg Tamsulosin HCl (Flomax) 0.4 mg PO DAILY [facility] Stop: 12/28/17 08:59 Last Admin: 11/01/17 09:02 Dose: 0.4 mg Zolpidem Tartrate (Ambien) 5 mg PO HS PRN PRN Reason: Insomnia Stop: 12/28/17 00:46 General: Alert, No acute distress HEENT: Atraumatic Neck: Supple Cardiovascular: Regular rate Lungs: Clear to auscultation Abdomen: Bowel sounds, Soft Extremities: Other (No edema) Neurological: Other (Unstable gait) Skin: Other (Warm and dry) Psych/Mental Status: Other (Confused, not oriented) Assessment/Plan - Problem List Patient Problems: All Active Problems AGITATION WITH RIGHT LOWER EXTREMITY RED (Acute) - Assessment Assessment: Current Active Problems Problem Status Onset AGITATION WITH RIGHT LOWER EXTREMITY RED Acute Patient is awake, alert, confused, calm, not oriented. Dx: cellulites left leg, Increased in agitation, CHF, CAD, HTN, DM, COPD, Psychosis - Plan Plan: Patient is follow by Psychiatry, continue with SNF meds, AB po. Leg US requested. Will continue to monitor Nutritional Asmnt/Malnutr-PDOC - Dietary Evaluation Malnutrition Findings (Please click <Entered> for more info): Nutritional Asmnt/Malnutrition Start: 10/29/17 11: 50 Text: Status: Complete Freq: Document 10/29/17 11:50 ZEINA (Rec: 10/29/17 12:11 [facility] Nutritional Asmnt/Malnutrition Patient General Information Nutritional Screening High Risk Diagnosis Psychosis NOS (reason for visit) Pertinent Medical Hx/Surgical Hx CAD, CHF, HTN, hyperlipidemia, COPD, dementia, psychosis, schizophrenia, diabetes, cellulitis Subjective Information patient in bed at time of visit. Tolerating current diet order without difficulty. Current Diet Order/ Nutrition Support Cardiac, 2gm sodium Pertinent Medications lipitor, vitamin D3, lasix, novolog, levemir, imodium, protonix Pertinent Labs (10/28) Na 127, glucose 270, albumin 3.8, TAG 374 Nutritional Hx/Data Height 1.83 m Height (Calculated Centimeters) 182.9 Current Weight (lbs) 104.326 kg Weight (Calculated Kilograms) 104.3 Weight (Calculated Grams) 640142.2 [place] Body Weight 178 % [place] Body Weight 129 Body Mass Index (BMI) 31.1 Recent Weight Change No Weight Status Obese GI Symptoms GI Symptoms None Last BM 10/29 x 1 Difficult in: None Food Allergies No Cultural/Ethnic/Restorationist Belief None indciated Skin Integrity/Comment: Per nursing notes, left lower leg with swelilng Estimated Nutritional Goals BEE in Kcals: Adj wt of IBW Calories/Kcals/Kg 86.8kg Adj wt (25-30 kcal/kg) Kcals Calculated 5613-5745 kcal/day Protein: Adj wt of IBW Protein g/k-1.2 gm/kg Protein Calculated 85-105 gm/day Fluid: ml 7835-8115 ml/day (1 ml/kcal) Nutritional Problem 1. Problem Problem Altered nutrition related lab values related to Etiology electrolyte imbalance and hyperglycemia aeb Signs/Symptoms: Na 127, glucose 270 Intervention/Recommendation Comments 1. Continue cardiac diet as tolerated by patient. 2. Consider adding 75gm CCHO diet restrictio to diet order; MD to also adjust insulin regimen for optimal glycemic control. 3. MD to consider fluid restriction due to hyponatremia. Expected Outcomes/Goals Expected Outcomes/Goals oral intake to meet <75% of nutrient needs, weight stable or trend toward ideal body weight, nutrition related labs normalize F/U in 3-5 days as MR 11/01-
[2017-11-02] MEDS: Pantoprazole 40 mg EC Tab PO SCH (09:27)
[2017-11-02] MEDS: Insulin Detemir 100 units/mL 10mL Vial SUBQ SCH (21:25)
[2017-11-02] MEDS: Atorvastatin Calcium 10 MG TAB PO SCH (21:25)
--- NOTE | 2017-11-03 03:28 | Progress Notes ---
DATE: 11/02/2017 SUBJECTIVE: Staff was spoken to. The patient is interviewed. Mood is noted to be irritable. Affect is constricted. The patient is getting easily frustrated for being in here. The patient's agitated behavior is a concern. The patient's mood swings are coming under control. No side effects to the medications are noted. Staff are reporting that the patient's pulse rate is a little bit low today and the patient is being closely monitored. No side effects to the medications are noted at this time, since possible it is low, it is decided to hold off the psychotropic medications. ASSESSMENT: The patient is still impulsive. PLAN: To continue the patient with the supportive therapy and followup. JOB# [id number]
[2017-11-03] MEDS: INSULIN ASPART SLIDING SCALE 100 UNITS/ML UNIT SUBQ SCH ×3 (06:53→17:08)
[2017-11-03] MEDS: Pantoprazole 40 mg EC Tab PO SCH (09:01)
--- NOTE | 2017-11-03 09:30 | General Progress Note ---
Subjective - Review of Systems Service Date: 11/03/17 Subjective: I am fine Objective - Results Result Diagrams: 10/28/17 18:08 10/28/17 18:08 Recent Labs: Laboratory Last Values WBC 7.0 Th/cmm (4.8-10.8) 10/28/17 18:08 RBC 4.14 Mil/cmm (3.80-5.80) 10/28/17 18:08 Hgb 12.8 gm/dL (12-16) 10/28/17 18:08 Hct 37.6 % (41.0-60) L 10/28/17 18:08 MCV 90.7 fl (80-99) 10/28/17 18:08 MCH 30.9 pg (27.0-31.0) 10/28/17 18:08 MCHC Differential 34.1 pg (28.0-36.0) 10/28/17 18:08 RDW 13.2 % (11.5-20.0) 10/28/17 18:08 Plt Count 113 Th/cmm (150-400) L 10/28/17 18:08 MPV 8.1 fl 10/28/17 18:08 Neutrophils % 61.9 % (40.0-80.0) 10/28/17 18:08 Lymphocytes % 17.9 % (20.0-50.0) L 10/28/17 18:08 Monocytes % 11.1 % (2.0-10.0) H 10/28/17 18:08 Eosinophils % 8.5 % (0.0-5.0) H 10/28/17 18:08 Basophils % 0.6 % (0.0-2.0) 10/28/17 18:08 Sodium 127 mEq/L (136-145) L 10/28/17 18:08 Potassium 4.4 mEq/L (3.5-5.1) 10/28/17 18:08 Chloride 98 mEq/L (98-107) 10/28/17 18:08 Carbon Dioxide 20.4 mEq/L (21.0-31.0) L 10/28/17 18:08 Anion Gap 13.0 (7.0-16.0) 10/28/17 18:08 BUN 24 mg/dL (7-25) 10/28/17 18:08 Creatinine 1.3 mg/dL (0.7-1.3) 10/28/17 18:08 Est GFR ( Amer) > 60.0 ml/min (>90) 10/28/17 18:08 Est GFR (Non-Af Amer) 58.9 ml/min 10/28/17 18:08 BUN/Creatinine Ratio 18.5 10/28/17 18:08 Glucose 270 mg/dL (70-105) H 10/28/17 18:08 POC Glucose 215 MG/DL (70 - 105) H 10/31/17 06:25 Hemoglobin A1c % 10.7 % (4.0-6.0) H 10/28/17 18:08 Calcium 9.2 mg/dL (8.6-10.3) 10/28/17 18:08 Magnesium 2.1 mg/dL (1.9-2.7) 10/28/17 18:08 Total Bilirubin 0.5 mg/dL (0.3-1.0) 10/28/17 18:08 AST 14 U/L (13-39) 10/28/17 18:08 ALT 18 U/L (7-52) 10/28/17 18:08 Alkaline Phosphatase 43 U/L (34-104) 10/28/17 18:08 Total Protein 6.6 gm/dL (6.0-8.3) 10/28/17 18:08 Albumin 3.8 gm/dL (4.2-5.5) L 10/28/17 18:08 Globulin 2.8 gm/dL 10/28/17 18:08 Albumin/Globulin Ratio 1.4 (1.0-1.8) 10/28/17 18:08 Triglycerides 374 mg/dL (<150) H 10/28/17 18:08 Cholesterol 117 mg/dL (<200) 10/28/17 18:08 LDL Cholesterol Direct 50 mg/dL (75-193) L 10/28/17 18:08 HDL Cholesterol 24 mg/dL (23-92) 10/28/17 18:08 - Physical Exam Vitals and I&O: Vital Signs Temp 98.6 F 11/02/17 20:00 Pulse 63 11/03/17 09:01 Resp 20 11/03/17 07:05 BP 126/75 11/03/17 09:01 Pulse Ox 95 11/03/17 07:05 Intake & Output 11/02/17 11/03/17 11/03/17 18:59 06:59 18:59 Intake Total 540 Balance 540 Intake: Oral 540 Other: # Voids 2 Active Medications: Current Medications Acetaminophen (Tylenol) 650 mg PO Q6HR PRN PRN Reason: PAIN Stop: 12/27/17 23:28 Last Admin: 11/03/17 06:54 Dose: 650 mg Albuterol/Ipratropium (Duoneb Neb) 3 ml HHN Q6HRT PRN PRN Reason: SOB/WHEEZING Stop: 12/27/17 23:28 Atorvastatin Calcium (Lipitor) 20 mg PO HS [facility] PRN Reason: Protocol Stop: 12/28/17 20:59 Last Admin: 11/02/17 21:25 Dose: 20 mg Carvedilol (Coreg) 6.25 mg PO Q12H [facility] Stop: 12/27/17 23:29 Last Admin: 11/02/17 23:42 Dose: 6.25 mg Cholecalciferol (Vitamin D3) 2,000 iu PO DAILY [facility] Stop: 12/28/17 08:59 Last Admin: 11/03/17 08:58 Dose: 2,000 iu Clindamycin HCl (Cleocin Hcl) 300 mg PO Q8HR [facility] Stop: 12/28/17 12:59 Last Admin: 11/03/17 05:58 Dose: 300 mg Clopidogrel Bisulfate (Plavix) 75 mg PO DAILY [facility] Stop: 12/28/17 08:59 Last Admin: 11/03/17 08:58 Dose: 75 mg Digoxin (Lanoxin) 0.125 mg PO DAILY [facility] Stop: 12/28/17 08:59 Last Admin: 11/03/17 08:59 Dose: 0.125 mg Divalproex Sodium (Depakote Dr) 500 mg PO BID [facility] PRN Reason: Protocol Stop: 12/28/17 08:59 Last Admin: 11/03/17 08:59 Dose: 500 mg Furosemide (Lasix) 40 mg PO DAILY [facility] Stop: 12/28/17 08:59 Last Admin: 11/03/17 08:59 Dose: 40 mg Glipizide (Glucotrol) 10 mg PO BID [facility] Stop: 12/30/17 08:59 Last Admin: 11/03/17 08:59 Dose: 10 mg Guaifenesin (Mucinex) 600 mg PO Q12HR [facility] Stop: 12/28/17 08:59 Last Admin: 11/03/17 09:01 Dose: 600 mg Guaifenesin/Dextromethorphan (Robitussin Dm) 10 ml PO Q6H PRN PRN Reason: Cough Insulin Aspart (Novolog Insulin Sliding Scale) 0 units SUBQ ACHS [facility] PRN Reason: Protocol Stop: 12/28/17 07:29 Last Admin: 11/03/17 06:53 Dose: 2 units Insulin Detemir (Levemir Insulin) 40 units SUBQ HS [facility] Stop: 12/27/17 23:44 Last Admin: 11/02/17 21:25 Dose: 40 units Lisinopril (Zestril) 10 mg PO DAILY [facility] Stop: 12/28/17 08:59 Last Admin: 11/03/17 09:00 Dose: 10 mg Loperamide HCl (Imodium) 2 mg PO Q4H PRN PRN Reason: Loose Stools Stop: 12/27/17 23:28 Lorazepam (Ativan) 0.5 mg PO Q4HR PRN; Protocol PRN Reason: Agitation Stop: 11/28/17 00:42 Last Admin: 10/29/17 17:10 Dose: 0.5 mg Miscellaneous (Dulaglutide [Trulicity]) 0.75 mg SC QWEEK 0730 [facility] Stop: 12/27/17 23:29 Montelukast Sodium (Singulair) 10 mg PO DAILY [facility] Stop: 12/28/17 08:59 Last Admin: 11/03/17 09:00 Dose: 10 mg Nitroglycerin (Nitrostat) 0.4 mg SL Q5MIN PRN PRN Reason: Chest Pain Stop: 12/27/17 23:28 Pantoprazole Sodium (Protonix) 40 mg PO DAILY [facility] Stop: 12/28/17 08:59 Last Admin: 11/03/17 09:01 Dose: 40 mg Quetiapine Fumarate (Seroquel) 25 mg PO HS [facility] PRN Reason: Protocol Stop: 12/31/17 19:26 Last Admin: 11/02/17 21:26 Dose: 25 mg Sodium Chloride (Nacl Tab) 1 gm PO BID [facility] Stop: 12/28/17 10:29 Last Admin: 11/03/17 09:01 Dose: 1 gm Spironolactone (Aldactone) 25 mg PO DAILY [facility] Stop: 12/28/17 08:59 Last Admin: 11/03/17 09:01 Dose: 25 mg Tamsulosin HCl (Flomax) 0.4 mg PO DAILY [facility] Stop: 12/28/17 08:59 Last Admin: 11/03/17 09:02 Dose: 0.4 mg Zolpidem Tartrate (Ambien) 5 mg PO HS PRN PRN Reason: Insomnia Stop: 12/28/17 00:46 General: Alert, No acute distress HEENT: Atraumatic Neck: Supple Cardiovascular: Regular rate Lungs: Clear to auscultation Abdomen: Bowel sounds, Soft Extremities: Other (No edema) Neurological: Other (Unstable gait) Skin: Other (Warm and dry) Psych/Mental Status: Other (Confused, not oriented) Assessment/Plan - Problem List Patient Problems: All Active Problems AGITATION WITH RIGHT LOWER EXTREMITY RED (Acute) - Assessment Assessment: Current Active Problems Problem Status Onset AGITATION WITH RIGHT LOWER EXTREMITY RED Acute Patient is awake, alert, confused, calm, not oriented. Dx: cellulites left leg, Increased in agitation, CHF, CAD, HTN, DM, COPD, Psychosis - Plan Plan: Patient is follow by Psychiatry, continue with SNF meds, AB po. Leg US requested. Will continue to monitor Nutritional Asmnt/Malnutr-PDOC - Dietary Evaluation Malnutrition Findings (Please click <Entered> for more info): Nutritional Asmnt/Malnutrition Start: 10/29/17 11: 50 Text: Status: Complete Freq: Document 10/29/17 11:50 ZEINA (Rec: 10/29/17 12:11 [facility] Nutritional Asmnt/Malnutrition Patient General Information Nutritional Screening High Risk Diagnosis Psychosis NOS (reason for visit) Pertinent Medical Hx/Surgical Hx CAD, CHF, HTN, hyperlipidemia, COPD, dementia, psychosis, schizophrenia, diabetes, cellulitis Subjective Information patient in bed at time of visit. Tolerating current diet order without difficulty. Current Diet Order/ Nutrition Support Cardiac, 2gm sodium Pertinent Medications lipitor, vitamin D3, lasix, novolog, levemir, imodium, protonix Pertinent Labs (10/28) Na 127, glucose 270, albumin 3.8, TAG 374 Nutritional Hx/Data Height 1.83 m Height (Calculated Centimeters) 182.9 Current Weight (lbs) 104.326 kg Weight (Calculated Kilograms) 104.3 Weight (Calculated Grams) 930656.2 [place] Body Weight 178 % [place] Body Weight 129 Body Mass Index (BMI) 31.1 Recent Weight Change No Weight Status Obese GI Symptoms GI Symptoms None Last BM 10/29 x 1 Difficult in: None Food Allergies No Cultural/Ethnic/Sikhism Belief None indciated Skin Integrity/Comment: Per nursing notes, left lower leg with swelilng Estimated Nutritional Goals BEE in Kcals: Adj wt of IBW Calories/Kcals/Kg 86.8kg Adj wt (25-30 kcal/kg) Kcals Calculated 3560-3768 kcal/day Protein: Adj wt of IBW Protein g/k-1.2 gm/kg Protein Calculated 85-105 gm/day Fluid: ml 7435-9716 ml/day (1 ml/kcal) Nutritional Problem 1. Problem Problem Altered nutrition related lab values related to Etiology electrolyte imbalance and hyperglycemia aeb Signs/Symptoms: Na 127, glucose 270 Intervention/Recommendation Comments 1. Continue cardiac diet as tolerated by patient. 2. Consider adding 75gm CCHO diet restrictio to diet order; MD to also adjust insulin regimen for optimal glycemic control. 3. MD to consider fluid restriction due to hyponatremia. Expected Outcomes/Goals Expected Outcomes/Goals oral intake to meet <75% of nutrient needs, weight stable or trend toward ideal body weight, nutrition related labs normalize F/U in 3-5 days as MR 11/01-
--- NOTE | 2017-11-03 21:05 | Discharge Summary ---
DATE OF DISCHARGE: 11/03/2017 IDENTIFYING DATA: The patient is a 67-year-old male, he admitted from [facility], [place]. JUSTIFICATION OF HOSPITALIZATION: The patient is admitted here on a voluntary basis in view of his acute agitation. CHIEF COMPLAINT: "I should not be here." DIAGNOSES AT THE TIME OF ADMISSION: AXIS I: Bipolar disorder mixed with psychotic symptoms. AXIS II: None. AXIS III: As per primary care physician. HISTORY OF PRESENT ILLNESS: Please refer to the 10/29/2017 dictation done by me. Physical examination at the time of admission was done by Dr. Martinez and is significant for cellulitis of the lower extremities. HOSPITAL COURSE AND RESPONSE TO TREATMENT: The patient has been closely monitored and treated for his diabetes as well as high blood pressure. The patient has been continued on the valproic acid for his impulsivity and patient has been closely monitored from side effects to the medications are noted. The patient's aggressive behavior has been coming under control and hence patient was discharged on 11/03/2017 with the recommendation that he is going to be continuing the quetiapine 25 mg at bedtime and the Depakote 500 mg twice a day. The patient is discharged back to the [facility], [place] for further followup. MENTAL STATUS EXAMINATION: At the time of discharge, patient's mood is noted to be less irritable. Affect is appropriate. Not suicidal or homicidal. Coping skills are noted to be fair. Sleep and appetite also noted to be fair. DIAGNOSTIC IMPRESSION: AXIS I: Bipolar disorder mixed with psychotic symptoms. AXIS II: None. AXIS III: Diabetes mellitus, hypertension, cellulitis of the lower extremities and hypercholesterolemia. AFTERCARE PLAN: The patient is discharged to [facility], [place] for further followup. PROGNOSIS: At the time of discharge noted to be fair with the treatment. JOB# [id number]
== END 2017-11-03 19:00 | DRG 885 ==
LOC: ER 17:46 → GERO2 19:25
PROVIDERS: ADMIT Psychiatry & Neurology Psychiatry; ATTEND Psychiatry & Neurology Psychiatry
DX: F31.64 Bipolar disorder, current episode mixed, severe, with psychotic features (principal); I11.0 Hypertensive heart disease with heart failure; L03.116 Cellulitis of left lower limb; R62.7 Adult failure to thrive; I50.9 Heart failure, unspecified; I48.91 Unspecified atrial fibrillation; I25.10 Atherosclerotic heart disease of native coronary artery without angina pectoris; N40.0 Benign prostatic hyperplasia without lower urinary tract symptoms; E66.9 Obesity, unspecified; E11.51 Type 2 diabetes mellitus with diabetic peripheral angiopathy without gangrene; Z68.31 Body mass index [BMI] 31.0-31.9, adult; E78.5 Hyperlipidemia, unspecified; J44.9 Chronic obstructive pulmonary disease, unspecified; Z79.4 Long term (current) use of insulin; F03.90 Unspecified dementia, unspecified severity, without behavioral disturbance, psychotic disturbance, mood disturbance, and anxiety; Z98.41 Cataract extraction status, right eye; Z98.42 Cataract extraction status, left eye
CPT/HCPCS: 36415-UA; 71045-TC; 80053-TC; 80061-TC; 82948-90; 83036-90; 83735-TC; 85025-TC; 90899; 93005; 93971-TC-LT; 94760; G0410; J1815; Z7610